=== PATIENT | female | born 1995 | race Caucasian/White ===

== ENCOUNTER 2021-01-11 10:08 | Inpatient (IN) | payer MEDICAID ==
[~2021-01-11] VITALS: Ht 152.4 cm; Wt 79.0 kg
[2021-01-11] MEDS ORDERED: MISOPROSTOL 200 MCG TABLET ONE (10:21)
[2021-01-11] MEDS ORDERED: MISOPROSTOL 25 MCG TABLET ONE (10:21)
[2021-01-11] MEDS ORDERED: OXYTOCIN 30U/ 0.9% NaCL 500ML 500 ML ONE (10:22)
[2021-01-11] MEDS ORDERED: TERBUTALINE 1 MG/ML, 1ML IVPush PRN (10:30)
[2021-01-11] MEDS ORDERED: SODIUM CITRATE/CITRIC ACID 30 ML UDC PO PRN (10:30)
[2021-01-11] MEDS ORDERED: SODIUM CHLORIDE FLUSH 10ML SYR IVF PRN (10:30)
[2021-01-11] MEDS ORDERED: OXYTOCIN 30U/ 0.9% NaCL 500ML 500 ML IV ONE (10:30)
[2021-01-11] MEDS ORDERED: ONDANSETRON 2MG/ML, 2ML IVPush PRN (10:30)
[2021-01-11] MEDS ORDERED: MISOPROSTOL 25 MCG TABLET VG PRN (10:30)
[2021-01-11] MEDS ORDERED: D5%-LACTATED RINGERS 1,000 ML IV SCH (10:30)
[2021-01-11] MEDS ORDERED: OXYTOCIN 30U/ 0.9% NaCL 500ML 500 ML IV PRN (10:30)
[2021-01-11] MEDS ORDERED: METOCLOPRAMIDE 5 MG/ML, 2ML IVPush PRN (10:30)
[2021-01-11] MEDS ORDERED: TERBUTALINE 1 MG/ML, 1ML SQ PRN (10:30)
[2021-01-11] MEDS ORDERED: CALCIUM CARBONATE 500 MG TAB.CHEW PO PRN (10:30)
[2021-01-11] MEDS ORDERED: FENTANYL PF 100 MCG/2ML IV PRN (10:30)
[2021-01-11 10:44] LABS: BASOPHILS % (AUTO) 0 % (0-1); EOSINOPHILS % (AUTO) 1 % (1-7); LYMPHOCYTES % (AUTO) 14 % (22-44); MEAN CORPUSCULAR HEMOGLOBIN 29.5 pg (27.0-34.8); MEAN CORPUSCULAR HGB CONC 33.2 g/dL (32.4-35.8); MEAN PLATELET VOLUME 7.3 fL (7.4-10.4); MONOCYTES % (AUTO) 7 % (2-9); NEUTROPHILS % (AUTO) 78 % (42-75); PLATELET COUNT 295 x10^3/uL (130-400); RED BLOOD COUNT 4.05 x10^6/uL (3.82-5.3); RED CELL DISTRIBUTION WIDTH 17.7 % (9.6-15.2)
[2021-01-11 10:49] LABS: MD NO
[2021-01-11] MEDS: LACTATED RINGERS 1,000 ML IV SCH (11:25)
[2021-01-12] MEDS: FENTANYL PF 100 MCG/2ML IVPush PRN ×2 (03:41→04:56)
[2021-01-12] MEDS: LACTATED RINGERS 1,000 ML IV SCH ×3 (04:56→19:00)
[2021-01-12] MEDS ORDERED: FENTANYL/BUPIV./NS/PF 250 ML EPIDCONT ONE (05:56)
[2021-01-12] MEDS ORDERED: BUPIVACAINE 0.25% ONE (05:56)
[2021-01-12] MEDS ORDERED: DIPHENHYDRAMINE 50 MG/ML, 1ML IVPush PRN (07:00)
[2021-01-12] MEDS ORDERED: LACTATED RINGERS 1,000 ML IVBOLUS PRN (07:00)
[2021-01-12] MEDS ORDERED: LACTATED RINGERS 1,000 ML IV SCH (07:00)
[2021-01-12] MEDS ORDERED: EPHEDRINE 50 MG/ML, 1ML IVPush PRN ×2 (07:00→17:00)
[2021-01-12] MEDS ORDERED: ONDANSETRON 2MG/ML, 2ML IVPush PRN ×2 (07:00→17:00)
[2021-01-12] MEDS ORDERED: FENTANYL/BUPIV./NS/PF 250 ML EPIDCONT SCH (07:00)
[2021-01-12] MEDS ORDERED: NALOXONE 0.4 MG/ML, 1ML IVPush PRN (07:00)
[2021-01-12] MEDS: AMPICILLIN 2 GM in SODIUM CHLORIDE 0.9% 100 ML IV SCH ×2 (10:00→15:49)
[2021-01-12] MEDS ORDERED: LACTATED RINGERS 1,000 ML INTUTE SCH (16:00)
[2021-01-12] MEDS ORDERED: LACTATED RINGERS 1,000 ML INTUTE PRN (16:00)
[2021-01-12] MEDS ORDERED: LACTATED RINGERS 1,000 ML IVBOLUS ONE (16:30)
[2021-01-12] MEDS ORDERED: AZITHROMYCIN 500 MG in SODIUM CHLORIDE 0.9% 250 ML IV ONE (16:30)
[2021-01-12] MEDS ORDERED: METOCLOPRAMIDE 5 MG/ML, 2ML IV ONE (16:30)
[2021-01-12] MEDS ORDERED: SODIUM CITRATE/CITRIC ACID 30 ML UDC PO ONE ×2 (16:30→17:30)
[2021-01-12] MEDS ORDERED: SODIUM CITRATE/CITRIC ACID 15 ML UDC ONE (16:57)
[2021-01-12] MEDS ORDERED: PROMETHAZINE 25 MG/ML, 1ML IV PRN (17:00)
[2021-01-12] MEDS ORDERED: OXYcodone 5 MG/5 ML ORAL.SOL UDC PO PRN (17:00)
[2021-01-12] MEDS ORDERED: METOPROLOL 1 MG/ML, 5ML IV PRN (17:00)
[2021-01-12] MEDS ORDERED: ALBUTEROL SULFATE 2.5 MG/3 ML NPPB PRN (17:00)
[2021-01-12] MEDS ORDERED: LABETALOL 5MG/ML, 20ML IV PRN (17:00)
[2021-01-12] MEDS ORDERED: MEPERIDINE/PF 25MG/0.5ML IVPush PRN (17:00)
[2021-01-12] MEDS ORDERED: FENTANYL PF 100 MCG/2ML IV PRN (17:00)
[2021-01-12] MEDS ORDERED: MIDAZOLAM 1 MG/ML, 2ML IV PRN (17:00)
[2021-01-12] MEDS ORDERED: HYDROcodone/APAP 7.5-325MG/15ML UDC PO PRN (17:00)
[2021-01-12] MEDS ORDERED: hydrALAzine 20 MG/ML, 1ML IV PRN (17:00)
[2021-01-12] MEDS ORDERED: HYDROmorphone 2 MG/ML, 1ML IVPush PRN (17:00)
[2021-01-12] MEDS ORDERED: PHENYLEPHRINE 10 MG/ML ONE (17:03)
[2021-01-12] MEDS ORDERED: DEXAMETHASONE 4 MG/ML, 1ML ONE (17:03)
[2021-01-12] MEDS ORDERED: CEFAZOLIN 1,000 MG ONE (17:03)
[2021-01-12] MEDS ORDERED: OXYTOCIN 10 UNITS/ML, 1ML ONE (17:03)
[2021-01-12] MEDS ORDERED: PROPOFOL 10 MG/ML, 20ML ONE (17:03)
[2021-01-12] MEDS ORDERED: EPHEDRINE 50 MG/ML, 1ML ONE (17:03)
[2021-01-12] MEDS ORDERED: SUCCINYLCHOLINE 20 MG/ML, 10ML ONE (17:03)
[2021-01-12] MEDS ORDERED: ONDANSETRON 2MG/ML, 2ML ONE (17:03)
[2021-01-12] MEDS ORDERED: FENTANYL PF 100 MCG/2ML ONE ×2 (17:03)
[2021-01-12] MEDS ORDERED: KETOROLAC 30 MG/1 ML ONE (17:03)
[2021-01-12] MEDS ORDERED: ONDANSETRON 2MG/ML, 2ML IV PRN (19:00)
[2021-01-12] MEDS: OXYTOCIN 30U/ 0.9% NaCL 500ML 500 ML IV SCH (19:00)
[2021-01-12] MEDS ORDERED: morphine SULFATE 10 MG/ML, 1ML IM PRN (19:00)
[2021-01-12] MEDS ORDERED: MISOPROSTOL 200 MCG TABLET PR PRN (19:00)
[2021-01-12] MEDS ORDERED: MORPHINE SULFATE 4 MG/ML, 1ML IVPush PRN (19:00)
[2021-01-12] MEDS ORDERED: CALCIUM CARBONATE 500 MG TAB.CHEW PO PRN (19:00)
[2021-01-12] MEDS: KETOROLAC 30 MG/1 ML IV SCH (19:00)
[2021-01-12 21:25] VITALS: BP 107/68
[2021-01-13 01:00] VITALS: BP 111/72
[2021-01-13] MEDS: KETOROLAC 30 MG/1 ML IV SCH ×3 (01:04→12:49)
[2021-01-13] MEDS: LACTATED RINGERS 1,000 ML IV SCH ×5 (03:00→17:51)
[2021-01-13 04:28] VITALS: BP 94/59
[2021-01-13 04:59] LABS: BASOPHILS % (AUTO) 0 % (0-1); EOSINOPHILS % (AUTO) 0 % (1-7); LYMPHOCYTES % (AUTO) 4 % (22-44); MEAN CORPUSCULAR HEMOGLOBIN 29.8 pg (27.0-34.8); MEAN CORPUSCULAR HGB CONC 33.5 g/dL (32.4-35.8); MEAN PLATELET VOLUME 7.6 fL (7.4-10.4); MONOCYTES % (AUTO) 4 % (2-9); NEUTROPHILS % (AUTO) 91 % (42-75); PLATELET COUNT 262 x10^3/uL (130-400); RED BLOOD COUNT 3.52 x10^6/uL (3.82-5.3); RED CELL DISTRIBUTION WIDTH 17.8 % (9.6-15.2)
[2021-01-13] MEDS: OXYTOCIN 30U/ 0.9% NaCL 500ML 500 ML IV SCH ×2 (05:00→15:49)
[2021-01-13 05:51] LABS: MD SCAN
[2021-01-13] MEDS: PRENATAL VIT/IRON/FA 1 EACH TABLET PO SCH (07:14)
[2021-01-13] MEDS: DOCUSATE 100 MG CAPSULE PO PRN ×2 (07:14→19:32)
[2021-01-13 08:00] VITALS: BP 106/72
[2021-01-13] MEDS: ACETAMINOPHEN 325 MG TABLET PO PRN ×3 (12:09→21:02)
[2021-01-13 12:24] VITALS: BP 125/81
[2021-01-13 15:42] VITALS: BP 111/62
[2021-01-13] MEDS: IBUPROFEN 600 MG TABLET PO PRN (19:32)
[2021-01-13 20:00] VITALS: BP 105/70
[2021-01-14] MEDS: OXYTOCIN 30U/ 0.9% NaCL 500ML 500 ML IV SCH ×3 (01:00→21:00)
[2021-01-14] MEDS: LACTATED RINGERS 1,000 ML IV SCH ×6 (01:00→21:00)
[2021-01-14] MEDS: IBUPROFEN 600 MG TABLET PO PRN ×4 (01:32→20:24)
[2021-01-14] MEDS: ACETAMINOPHEN 325 MG TABLET PO PRN ×6 (01:32→23:49)
[2021-01-14] MEDS: SIMETHICONE 80 MG CHEW TAB PO PRN ×2 (01:35→08:03)
[2021-01-14 07:54] VITALS: BP 107/70
[2021-01-14] MEDS: PRENATAL VIT/IRON/FA 1 EACH TABLET PO SCH (08:03)
[2021-01-14] MEDS: DOCUSATE 100 MG CAPSULE PO PRN ×2 (08:03→20:24)
[2021-01-14 19:30] VITALS: BP 120/77
[2021-01-15] MEDS: IBUPROFEN 600 MG TABLET PO PRN ×2 (02:31→08:18)
[2021-01-15] MEDS: LACTATED RINGERS 1,000 ML IV SCH ×3 (03:00→11:00)
[2021-01-15] MEDS: ACETAMINOPHEN 325 MG TABLET PO PRN ×3 (04:36→12:16)
[2021-01-15] MEDS: OXYTOCIN 30U/ 0.9% NaCL 500ML 500 ML IV SCH (07:00)
[2021-01-15] MEDS: PRENATAL VIT/IRON/FA 1 EACH TABLET PO SCH (08:18)
[2021-01-15] MEDS: DOCUSATE 100 MG CAPSULE PO PRN (08:18)
[2021-01-15 08:21] VITALS: BP 125/82
[2021-01-15] MEDS ORDERED: IBUP-1222 PO (10:19)
[2021-01-15] MEDS ORDERED: DOCU-131 PO (10:19)
[2021-01-15] MEDS ORDERED: TRAM50TA2 PO (10:20)
== END 2021-01-15 14:45 | disposition home or self-care (01) | DRG 787 ==
LOC: LDIP 10:08 → 2NW 01-12 21:10
PROVIDERS: ADMIT Obstetrics & Gynecology; ATTEND Obstetrics & Gynecology
PROC: 10D00Z1 Extraction of Products of Conception, Low, Open Approach (ICD-10-PCS; principal; 2021-01-12)
DX: O48.0 Post-term pregnancy (principal); O99.354 Diseases of the nervous system complicating childbirth; Z37.0 Single live birth; Z3A.40 40 weeks gestation of pregnancy; O76 Abnormality in fetal heart rate and rhythm complicating labor and delivery; Z20.822 Contact with and (suspected) exposure to COVID-19; J45.909 Unspecified asthma, uncomplicated; O99.52 Diseases of the respiratory system complicating childbirth; G43.909 Migraine, unspecified, not intractable, without status migrainosus; Z87.891 Personal history of nicotine dependence; O63.1 Prolonged second stage (of labor); O69.81X0 Labor and delivery complicated by cord around neck, without compression, not applicable or unspecified
CPT/HCPCS: 36415; 85025; 86592; 86850; 86900; 87635; G0378; J0290; J0456; J0690; J1100; J1885; J2405; J2704; J3010; J0330; J2370; J2590; J3105; J7050; J7120